=== PATIENT | male | born 1975 | race Asian ===

== ENCOUNTER 2020-06-27 12:31 | Emergency (ER) | payer BC, OTHER ==
--- NOTE | 2020-06-27 13:01 | TELE ---
HPI Do you have fever,cough or shortness of breath?: No - General Reason For Visit: COVID 19 TESTING History Source: Patient Exam Limitations: No Limitations - History of Present Illness 06/27/20 12:59 45 year old male requesting COVID testing for employment. Denies any symptoms *Physical Exam - Physical Exam 06/27/20 12:59 Differed 2/2 pt not having access to video chat - Medical Decision Making 06/27/20 13:00 Pt to precede to [facility] for COVID testing Discharge Diagnosis at time of Disposition: COVID-19 - Referrals - Patient Instructions Discharge Instructions: [facility] Instructions, [facility] COVID-19 Isolation Protocol Additional Discharge Instructions: Please self isolate until you receive results - Discharge Disposition: HOME Condition at time of Disposition: Stable
== END 2020-06-27 13:04 | disposition home or self-care (01) ==
LOC: JVIRT 12:31
DX: Z11.59 Encounter for screening for other viral diseases (principal)
CPT/HCPCS: Q3014-GT; U0003